=== PATIENT | female | born 1995 | race Two or more races ===

== ENCOUNTER 2019-08-26 23:38 | Emergency (ER) | payer BC ==
[~2019-08-26] VITALS: Ht 175.3 cm; Wt 75.5 kg
[2019-08-27] MEDS ORDERED: methylPREDNISolone SOD SUCC 125 MG/2 ML VL IM ONE (01:30)
[2019-08-27] MEDS ORDERED: cefTRIAXone SOD 1,000 MG VL IM ONE (01:30)
[2019-08-27] MEDS ORDERED: KETOROLAC TROMETH 60MG/2ML VIAL IM ONE (01:30)
[2019-08-27 01:47] VITALS: BP 133/79
== END 2019-08-27 02:07 | disposition home or self-care (01) ==
LOC: ER 23:41
DX: H66.91 Otitis media, unspecified, right ear (principal); H60.91 Unspecified otitis externa, right ear; J06.9 Acute upper respiratory infection, unspecified; Z90.89 Acquired absence of other organs
CPT/HCPCS: 96372; 99283; J0696; J1885; J2930